=== PATIENT | female | born 1975 | race African-American/Black ===

== ENCOUNTER 2021-12-11 12:59 | Inpatient (IN) | payer BC ==
[2021-12-11] MEDS ORDERED: chlordiazePOXIDE HCL 25 MG CAPSULE PO PRN (14:00)
[2021-12-11] MEDS ORDERED: ACETAMINOPHEN 325 MG TABLET (FP) PO PRN ×2 (14:00)
[2021-12-11] MEDS ORDERED: NICOTINE 10 MG CARTRIDGE (INHALER) IH PRN (14:00)
[2021-12-11] MEDS ORDERED: MAGNESIUM HYDROX 2400MG/30ML ORAL SUSPENSION 30 ML CUP PO PRN (14:00)
[2021-12-11] MEDS ORDERED: MAGNESIUM CITRATE 300 ML BOTTLE PO PRN (14:00)
[2021-12-11] MEDS ORDERED: ONDANSETRON *ODT* 4 MG TABLET SL PRN (14:00)
[2021-12-11] MEDS ORDERED: MENTHOL/PHENOL 1 EACH UD MM PRN (14:00)
[2021-12-11] MEDS ORDERED: IBUPROFEN 400 MG TABLET (FP) PO PRN (14:00)
[2021-12-11] MEDS ORDERED: MAG HYDROX/AL HYDROX/SIMETH 30 ML UNIT-DOSE CUP PO PRN (14:00)
[2021-12-11] MEDS ORDERED: LOPERAMIDE HCL 2 MG CAPSULE PO PRN (14:00)
[2021-12-11] MEDS ORDERED: BISMUTH SUBSALICYLATE 524 MG/30 ML PO PRN (14:00)
[2021-12-11 15:12] VITALS: BMI 31.4
[2021-12-11] MEDS: amLODIPine BESYLATE 2.5 MG TABLET (FP) PO SCH (17:03)
[2021-12-11] MEDS: hydrOXYzine PAMOATE 25 MG CAPSULE (FP) PO SCH ×3 (17:40→22:10)
[2021-12-11] MEDS: chlordiazePOXIDE HCL 25 MG CAPSULE PO SCH ×2 (17:40→23:00)
[2021-12-11] MEDS: PRENATAL VITAMINS W/ FOLIC ACID TABLET (FP) PO SCH (17:40)
[2021-12-11] MEDS: NICOTINE 7 MG/24 HOURS TOPICAL PATCH TD SCH (17:43)
[2021-12-11] MEDS: THIAMINE HCL 100 MG TABLET (FP) PO SCH (22:10)
[2021-12-11] MEDS: MELATONIN 5 MG TABLETS PO SCH (22:10)
[2021-12-12] MEDS: chlordiazePOXIDE HCL 25 MG CAPSULE PO SCH ×4 (05:57→22:06)
[2021-12-12] MEDS: hydrOXYzine PAMOATE 25 MG CAPSULE (FP) PO SCH ×5 (05:57→22:08)
[2021-12-12] MEDS ORDERED: busPIRone HCL 5 MG TABLET PO PRN (09:31)
[2021-12-12 10:16] LABS: HEMATOCRIT 37.4 % (32.4-45.2); HEMOGLOBIN 11.9 GM/dL (10.7-15.3); MCH 25.4 pg (25.7-33.7); MCHC 31.9 g/dl (32.0-36.0); MEAN CELL VOLUME 79.7 fl (80-96); PLATELET COUNT 280 10^3/uL (134-434); RBC 4.69 M/mm3 (3.60-5.2); RDW 18.4 % (11.6-15.6); WHITE BLOOD COUNT 4.7 K/mm3 (4.0-10.0)
[2021-12-12 10:18] LABS: ALBUMIN 3.9 g/dl (3.4-5.0); BLOOD UREA NITROGEN 18.1 mg/dL (7-18)
[2021-12-12 10:19] LABS: CALCIUM 8.8 mg/dL (8.5-10.1)
[2021-12-12 10:21] LABS: CREATININE 0.9 mg/dL (0.55-1.3)
[2021-12-12 10:23] LABS: BILIRUBIN,TOTAL 0.7 mg/dL (0.2-1); TOT PROT 7.9 g/dl (6.4-8.2)
[2021-12-12] MEDS: PRENATAL VITAMINS W/ FOLIC ACID TABLET (FP) PO SCH (10:27)
[2021-12-12] MEDS: amLODIPine BESYLATE 2.5 MG TABLET (FP) PO SCH (10:27)
[2021-12-12] MEDS: METHOCARBAMOL 500 MG TABLET PO PRN (10:28)
[2021-12-12] MEDS: NICOTINE 7 MG/24 HOURS TOPICAL PATCH TD SCH (12:23)
[2021-12-12] MEDS: PANTOPRAZOLE 20 MG TABLET PO SCH (13:06)
[2021-12-12] MEDS: NICOTINE 14 MG/24 HOURS TOPICAL PATCH TD SCH (13:07)
[2021-12-12] MEDS: THIAMINE HCL 100 MG TABLET (FP) PO SCH (22:07)
[2021-12-12] MEDS: MELATONIN 5 MG TABLETS PO SCH (22:08)
[2021-12-12] MEDS: SERTRALINE HCL 50 MG TABLET (FP) PO SCH (22:08)
[2021-12-13] MEDS: hydrOXYzine PAMOATE 25 MG CAPSULE (FP) PO SCH ×5 (05:49→22:24)
[2021-12-13] MEDS: chlordiazePOXIDE HCL 25 MG CAPSULE PO SCH ×2 (05:49→10:20)
[2021-12-13] MEDS: METHOCARBAMOL 500 MG TABLET PO PRN (10:20)
[2021-12-13] MEDS: amLODIPine BESYLATE 2.5 MG TABLET (FP) PO SCH (10:20)
[2021-12-13] MEDS: PRENATAL VITAMINS W/ FOLIC ACID TABLET (FP) PO SCH (10:20)
[2021-12-13] MEDS: PANTOPRAZOLE 20 MG TABLET PO SCH (10:20)
[2021-12-13] MEDS: NICOTINE 14 MG/24 HOURS TOPICAL PATCH TD SCH (10:22)
[2021-12-13 14:07] LABS: SARS-CoV-2 NAA Not Detected (Not Detected)
[2021-12-13] MEDS ORDERED: LORazepam 0.5 MG TABLET PO PRN (14:07)
[2021-12-13] MEDS: LORATADINE 10 MG TABLET PO SCH (15:38)
[2021-12-13] MEDS: LORazepam 0.5 MG TABLET PO SCH ×2 (17:04→22:25)
[2021-12-13] MEDS: THIAMINE HCL 100 MG TABLET (FP) PO SCH (22:24)
[2021-12-13] MEDS: MELATONIN 5 MG TABLETS PO SCH (22:24)
[2021-12-13] MEDS: SERTRALINE HCL 50 MG TABLET (FP) PO SCH (22:24)
[2021-12-14] MEDS ORDERED: chlordiazePOXIDE HCL 10 MG CAPSULE PO PRN
[2021-12-14] MEDS ORDERED: LORazepam 0.5 MG TABLET PO PRN (00:01)
[2021-12-14] MEDS ORDERED: LORazepam 0.5 MG TABLET PO SCH (05:00)
[2021-12-14] MEDS ORDERED: chlordiazePOXIDE HCL 10 MG CAPSULE PO SCH (05:00)
[2021-12-14] MEDS: hydrOXYzine PAMOATE 25 MG CAPSULE (FP) PO SCH ×2 (06:02→10:15)
[2021-12-14 09:20] VITALS: PULSE 68; TEMP 97.4
[2021-12-14] MEDS: PANTOPRAZOLE 20 MG TABLET PO SCH (10:12)
[2021-12-14] MEDS: PRENATAL VITAMINS W/ FOLIC ACID TABLET (FP) PO SCH (10:12)
[2021-12-14] MEDS: LORATADINE 10 MG TABLET PO SCH (10:12)
[2021-12-14] MEDS: NICOTINE 14 MG/24 HOURS TOPICAL PATCH TD SCH (10:16)
[2021-12-14] MEDS: amLODIPine BESYLATE 2.5 MG TABLET (FP) PO SCH (11:09)
[2021-12-14 16:41] VITALS: BP 158/78
[2021-12-15] MEDS ORDERED: chlordiazePOXIDE HCL 10 MG CAPSULE PO SCH (05:00)
[2021-12-15] MEDS ORDERED: LORazepam 0.5 MG TABLET PO SCH (05:00)
[2021-12-16] MEDS ORDERED: LORazepam 0.5 MG TABLET PO ONE (05:00)
[2021-12-16] MEDS ORDERED: chlordiazePOXIDE HCL 10 MG CAPSULE PO ONE (05:00)
== END 2021-12-14 11:30 | disposition home or self-care (01) | DRG 897 ==
LOC: YASAS 12:59 → Y6N 15:30
PROVIDERS: ADMIT Allergy & Immunology; ATTEND Allergy & Immunology
PROC: HZ2ZZZZ Detoxification Services for Substance Abuse Treatment (ICD-10-PCS; principal; 2021-12-11)
DX: F10.230 Alcohol dependence with withdrawal, uncomplicated (principal); F14.20 Cocaine dependence, uncomplicated; F17.210 Nicotine dependence, cigarettes, uncomplicated; F41.9 Anxiety disorder, unspecified; F34.1 Dysthymic disorder; I10 Essential (primary) hypertension; K21.9 Gastro-esophageal reflux disease without esophagitis; J30.9 Allergic rhinitis, unspecified; Z62.810 Personal history of physical and sexual abuse in childhood; Z91.410 Personal history of adult physical and sexual abuse; Z59.01 Sheltered homelessness; Z56.0 Unemployment, unspecified
CPT/HCPCS: 36415; 80053; 85027; 86780; 93005; 93010; C9803; U0003; U0005